=== PATIENT | female | born 1965 | race Two or more races ===

== ENCOUNTER 2020-10-04 17:46 | Emergency (ER) | payer OTHER ==
[~2020-10-04] VITALS: Ht 157.5 cm; Wt 95.7 kg
== END 2020-10-04 22:31 | disposition home or self-care (01) ==
LOC: ER 17:46
DX: R10.13 Epigastric pain (principal)

== ENCOUNTER 2020-10-11 10:24 | Emergency (ER) | payer OTHER ==
[~2020-10-11] VITALS: Ht 165.1 cm; Wt 126.6 kg
[2020-10-11] MEDS ORDERED: AMLODIPINE-OLM1 EAC2 (17:05)
[2020-10-11] MEDS ORDERED: PANTOPRAZOLE SO20 MG (17:05)
[2020-10-11] MEDS ORDERED: GLIMEPIRIDE1 M1 (17:05)
[2020-10-12] MEDS ORDERED: PEPCID AC20 MG PO (00:20)
[2020-10-12] MEDS ORDERED: PERCOCET 5-3251 EACH PO (00:20)
[2020-10-12] MEDS ORDERED: ACETAMINOPHEN650 M2 PO (00:20)
== END 2020-10-12 00:41 | disposition home or self-care (01) ==
LOC: ER 10:24
DX: C25.9 Malignant neoplasm of pancreas, unspecified (principal); R10.84 Generalized abdominal pain; Z03.818 Encounter for observation for suspected exposure to other biological agents ruled out

== ENCOUNTER 2020-10-16 15:13 | Outpatient (CLI) | payer OTHER ==
[~2020-10-16 15:13] MED LIST: ACETAMINOPHEN650 M2 PO; AMLODIPINE-OLM1 EAC2; GLIMEPIRIDE1 M1; PANTOPRAZOLE SO20 MG; PEPCID AC20 MG PO; PERCOCET 5-3251 EACH PO
== END 2020-10-16 15:20 | disposition home or self-care (01) ==
LOC: TOM 15:13
PROVIDERS: ATTEND Internal Medicine
DX: Q33.0 Congenital cystic lung (principal); C25.3 Malignant neoplasm of pancreatic duct

== ENCOUNTER 2020-11-30 23:06 | Emergency (ER) | payer OTHER ==
[~2020-11-30] VITALS: Ht 157.5 cm; Wt 89.4 kg
== END 2020-12-01 06:05 | disposition home or self-care (01) ==
LOC: ER 23:06
DX: C78.6 Secondary malignant neoplasm of retroperitoneum and peritoneum (principal); C25.3 Malignant neoplasm of pancreatic duct; R10.84 Generalized abdominal pain